=== PATIENT | male | born 1960 | race Caucasian/White ===

== ENCOUNTER → 2022-11-02 11:03 | Outpatient (BNVA) | payer OTHER, SELFPAY | PROVIDERS: Visit Provider Neurological Surgery | DX: M51.06 Intervertebral disc disorders with myelopathy, lumbar region (principal) | CPT/HCPCS: 99202 ==

== ENCOUNTER 2022-11-04 05:57 | Day surgery (SDC) | payer OTHER, SELFPAY ==
[2022-11-02 10:07] VITALS: BMI 26.8
--- NOTE | 2022-11-03 10:12 | P.CONAN_ITS ---
Documented by User: Cassie Escoto NP 11/03/22 10:15 HPI - Anesthesia Eval Consult details Narrative: 62yo M for L4-5 Micro Lumbar discectomy Morphine daily Patient unable to come for PAT d/t severe pain. PMFSH Active Problems Active Problems: All Active Problems (Updated 11/02/22 @ 12:30 by Najma Redd, MELE) Lumbar disc herniation with myelopathy (Acute ~10/27/22) Past Medical History Medical History (Updated 11/02/22 @ 12:30 by Najma Redd RN) Back pain Basal cell carcinoma of skin Elevated cholesterol Incomplete right bundle branch block (RBBB) Osteoarthritis Surgical History Surgical History (Updated 11/02/22 @ 10:03 by Najma Redd RN) H/O colonoscopy History of back surgery History of back surgery Hx of knee surgery Social History Social History Are you a primary clinical manager home care to a significant other at home: No Do you presently have visiting nurse or other home services: No Patient Tobacco Use Status: Never used Tobacco Use of substances other than those prescribed or required for medical reasons: No Have you been hit, kicked, punched, or otherwise hurt by someone within the past year? If so, by whom?: No Are you DNR?: No Advance Directives Information Provided: Yes (as above noted-will bring copy DOS) Advance Directives on File: No Recently lost weight without trying: No Eating poorly because of decreased appetite: No Nutrition Risks: No Nutritional Risk Poor oral hygiene: No Meds Allergies Allergy/AdvReac Type Severity Reaction Status Date / Time No Known Allergies Allergy Verified 11/02/22 10:03 Active Medications: Current Medications Gabapentin (Gabapentin 300 Mg Capsule) 300 mg PO PREOP ONE Stop: 11/04/22 10:01 Cefazolin Sodium/Dextrose (Ancef) 2 gm in 50 mls @ 100 mls/hr IV PREOP ONE Stop: 11/04/22 10:29 Acetaminophen (Ofirmev) 1,000 mg in 100 mls @ 400 mls/hr IV PREOP ONE Stop: 11/04/22 10:14 Methocarbamol (Methocarbamol 750 Mg Tablet) 750 mg PO PREOP ONE Stop: 11/04/22 10:01 Home Medications Medication Instructions Recorded Confirmed Last Taken Type aspirin 81 mg tablet,delayed 81 mg PO DAILY 11/02/22 11/02/22 11/03/22 History release atorvastatin 40 mg tablet 20 mg PO QPM 11/02/22 11/02/22 11/03/22 History cyclobenzaprine 10 mg tablet 10 mg PO TID 11/02/22 11/02/22 11/03/22 History ibuprofen 600 mg tablet 600 mg PO TID 11/02/22 11/02/22 11/03/22 History methylprednisolone 11/02/22 11/02/22 11/03/22 History morphine 15 mg immediate release 15 mg PO TID 11/02/22 11/02/22 11/03/22 History tablet multivitamin 1 tab PO DAILY 11/02/22 11/02/22 11/03/22 History Exam Exam Date and Time: November 03, 2022 1012 Height,Weight and Vital Signs: Height 5 ft 11.5 in Weight 88.451 kg Assessment and Plan Assessment Anesthesia Assessment: Chart Reviewed Documented by User: Perez Haddad MD 11/04/22 07:07 [facility] Past Medical History Medical History (Updated 11/02/22 @ 12:30 by Najma Redd RN) Back pain Basal cell carcinoma of skin Elevated cholesterol Incomplete right bundle branch block (RBBB) Osteoarthritis Family History Family history of problems with anesthesia: No Surgical History Surgical History (Updated 11/02/22 @ 10:03 by Najma Redd RN) H/O colonoscopy History of back surgery History of back surgery Hx of knee surgery History of Problems with Anesthesia: No Social History Social History Are you a primary clinical manager home care to a significant other at home: No Do you presently have visiting nurse or other home services: No Patient Tobacco Use Status: Never used Tobacco Use of substances other than those prescribed or required for medical reasons: No Have you been hit, kicked, punched, or otherwise hurt by someone within the past year? If so, by whom?: No Are you DNR?: No Advance Directives Information Provided: Yes (as above noted-will bring copy DOS) Advance Directives on File: No Recently lost weight without trying: No Eating poorly because of decreased appetite: No Nutrition Risks: No Nutritional Risk Poor oral hygiene: No Meds Allergies Allergy/AdvReac Type Severity Reaction Status Date / Time No Known Allergies Allergy Verified 11/02/22 10:03 Home Medications Medication Instructions Recorded Confirmed Last Taken Type aspirin 81 mg tablet,delayed 81 mg PO DAILY 11/02/22 11/02/22 11/03/22 History release atorvastatin 40 mg tablet 20 mg PO QPM 11/02/22 11/02/22 11/03/22 History cyclobenzaprine 10 mg tablet 10 mg PO TID 11/02/22 11/02/22 11/03/22 History ibuprofen 600 mg tablet 600 mg PO TID 11/02/22 11/02/22 11/03/22 History methylprednisolone 11/02/22 11/02/22 11/03/22 History morphine 15 mg immediate release 15 mg PO TID 11/02/22 11/02/22 11/03/22 History tablet multivitamin 1 tab PO DAILY 11/02/22 11/02/22 11/03/22 History Exam Airway Mallampati Class: III TM Dist: <=3cm Neck ROM: Limited Heart: rrr Lungs: cta Assessment and Plan Assessment Anesthesia Assessment: Anesthesia Plan Discussed Final Anesthetic Review Family History of Problems with Anesthesia: No History of Problems with Anesthesia: No NPO: Yes ASA Class: III Final Preanesthetic Review: No Changes in Pt Med Stat, Meds/Allgs Chart Reviewed, Consent Obtained/Reviewed and Anes Risks/Benef Reviewed Patient Risk: Intermediate Procedure Risk: Intermediate Anesthetic Plan Anesthetic Plan: GA Disposition: Standard PACU
[2022-11-04] VITALS (10 sets, daily range): BP systolic 116–134; BP diastolic 53–78; PULSE 61–85; RESP 16–20; TEMP 35.7–37; O2SAT 96–99; BMI 26.8
--- NOTE | 2022-11-04 | ECG_ITS ---
Test Reason : RBBB PREOP Blood Pressure : / mmHG Vent. Rate : 057 BPM Atrial Rate : 057 BPM P-R Int : 154 ms QRS Dur : 100 ms QT Int : 420 ms P-R-T Axes : 062 024 005 degrees QTc Int : 408 ms Sinus bradycardia Otherwise normal ECG No previous ECGs available Referred By: Cassie Escoto Electronically Signed By:Shahbaz Dawn
--- NOTE | ~2022-11-04 | FL_ITS ---
EXAMINATION: XR FLUOROSCOPY WITH IMAGES CLINICAL INFORMATION: Surgical localization. COMPARISON: None available. TECHNIQUE: Fluoroscopy Supervised By: Dr. Arash Parada. Fluoroscopy Time: Under 10 seconds. Cumulative Dose: 1.91 mGy. DAP: 0.357 Gycm2. Images: 1. FL/FL guidance in OR FINDINGS/IMPRESSION: There is a clamp overlying the posterior elements lower lumbar spine at L4-L5.
[2022-11-04] MEDS: Gabapentin 300 MG CAPSULE PO (06:15)
[2022-11-04] MEDS: methocarbamoL 750 MG TABLET PO (06:15)
[2022-11-04] MEDS: Lactated Ringers 1,000 ML 100 ML IVCONT (06:36)
[2022-11-04 06:56] LABS: Hematocrit 42.8 % (42.0-52.0); Hemoglobin 14.6 g/dl (14.0-18.0); Mean Corpuscular HGB Conc 34.1 g/dl (31.0-36.0); Mean Corpuscular Hemoglobin 31.8 pg (27.0-33.0); Mean Corpuscular Volume 93.2 fL (80.0-98.0); Mean Platelet Volume 10.6 fL (9.4-12.4); Platelet Count 264 X10*3/uL (160-400); Red Blood Count 4.59 X10*6/uL (4.60-5.80); Red Cell Distribution Width 12.2 % (11.0-16.0); White Blood Count 12.8 X10*3/uL (4.8-10.8)
[2022-11-04 07:17] LABS: Anion Gap 10 (12-20); Blood Urea Nitrogen 21 mg/dL (9-16); Calcium 9.6 mg/dL (8.4-10.2); Carbon Dioxide 28 mmol/L (22-29); Chloride 107 mmol/L (96-108); Estimated Glomerular Filt Rate > 60; Glucose Fasting 101 mg/dL (60-99); Potassium 4.7 mmol/L (3.3-5.1); Sodium 140 mmol/L (135-145)
--- NOTE | 2022-11-04 09:04 | P.OP_ITS ---
Operative Note Operative Note Date of Service: 11/04/22 Narrative: Preoperative diagnosis: Right lumbar radiculopathy due to disc herniation Postoperative diagnosis: Same Procedure: Right L4-5 lumbar microdiskectomy with microscope Surgeon: Arash Parada MD, PhD Public Relations Studies Director: Sanjay West PA-c This is a 62-year-old male that developed an acute lumbar radiculopathy with numbness and weakness of his right leg. An MRI shows a right L4-5lumbar disc herniation. The patient was offered a lumbar microdiskectomy to decompress the nerve root. The procedure complications were explained. The patient was consented. The patient was brought to the operating room and endotracheally intubated. The patient was turned in a prone position on the Adrian frame. Prepping and draping was done followed by time-out. A mid lumbar incision was made followed by release of the paravertebral muscles on the right side to expose the L4-5 interspace. An intraoperative x-rays obtained to confirm the correct level. The microscope was brought in. A right L5 laminotomy was done fo llowed by opening of the flavum ligament. The L5 nerve root was identified and retracted medially to expose the L4-5 disc space. I could palpate a disc herniation medial from the L5 nerve root, which I coronary removed with a pituitary. A defect was seen in the disc space and with a straight pituitary residual fragments were removed from the disc space. This resulted in an excellent decompression of the L5 nerve root. Hemostasis was done. The microscope was removed. Marcaine was injected intramuscularly.The incision was closed in two layers. Steri-Strips used to approximate seizure. An op-site were taken there was used to cover the incision. All sponge and needle counts were correct. Patient was extubated and transported in stable condition to recovery room. this procedure was done with the aid of a physician curriculum assistant principal who performed the initial exposure until the microscope was brought in and performed the closure of the incision. Anesthesia: General Blood loss: 10 mL Complications: None Specimen: None Disposition: Discharge
--- NOTE | 2022-11-04 09:04 | PM.DS ---
DS: Providers Provider Date of Service: 11/04/22 Date of discharge: 11/04/22 Primary care physician: Unknown Physician DS: Diagnosis Discharge Diagnosis (1) Lumbar disc herniation with myelopathy: Status: Acute DS: Summary Time Spent with Patient Time attestation: Total time managing care of this patient today ____ minutes. Discharge coordination time: Less than 30 minutes Quality: Safe Use of Opioids Does Pt have an Active Cancer Diagnosis on the Problem List?: No Quality: Stroke Does the patient have a stroke diagnosis?: No Physical Exam Vital Signs: Vital Signs: Last Vital Signs Temp 96.3 F L 11/04/22 06:01 Pulse 61 11/04/22 06:01 Resp 20 11/04/22 06:01 BP 134/77 11/04/22 06:01 Pulse Ox 98 11/04/22 06:01 O2 Del Method Room Air 11/04/22 06:01 BMI result Body Mass Index 26.8 DS: Data Data Completed and Pending Labs on day of discharge: Laboratory Results - last 24 hr 11/04/22 11/04/22 06:47 06:47 WBC 12.8 H RBC 4.59 L Hgb 14.6 Hct 42.8 MCV 93.2 MCH 31.8 MCHC 34.1 RDW 12.2 Plt Count 264 MPV 10.6 Absolute Nucleated RBC 0.000 Nucleated RBC % (auto) 0.0 Sodium 140 Potassium 4.7 Chloride 107 Carbon Dioxide 28 Anion Gap 10 L BUN 21 H Creatinine 0.83 Estim Creat Clear Calc 97.0 Estimated GFR > 60 Fasting Glucose 101 H Calcium 9.6 Discharge Plan Discharge Patient Disposition: Home, Self-Care Referrals: Physician,Unknown J [Primary Care Provider] - 1 Week Discharge Medications: New oxycodone 5 mg tablet 5 mg PO Q4H PRN (Reason: pain) Qty: 30 0RF Rx Instructions: Partial Fill upon patient request. Continued cyclobenzaprine 10 mg Tablet 10 mg PO TID ibuprofen 600 mg Tablet 600 mg PO TID morphine 15 mg Tablet 15 mg PO TID methylprednisolone multivitamin Tablet 1 tab PO DAILY atorvastatin 40 mg tablet 20 mg PO QPM aspirin 81 mg Tablet,Delayed Release (Dr/Ec) 81 mg PO DAILY Discharge Orders: Discharge Order (Routine); Ordered 11/04/22 Ordered By: Sanjay West Diet: Advance to usual diet Activity on Discharge: As tolerated Activity Restrictions/Additional Instructions: After your spinal surgery we ask you to observe the following restrictions/guidelines: Activity: It is normal to feel some discomfort as you increase your activity, but that will improve with time. We ask you avoid heavy lifting or acitivities that cause pain. As a general rule, 8lbs is a safe limit for lifting right after surgery. Walk as much as you feel comfortable but not to exhaustion. You will feel extra tired the first few days after surgery. Stay well hydrated. It is OK to walk up and down stairs You may return to driving when you are off narcotics (such as vicodin, oxycodone, dilaudid, etc), and you are back to normal functional capacity. If you have any concerns please check with office before driving. Return to work is specific to each patient and each surgery, so please speak with your doctor/PA at first follow up. Please bring paperwork such as FMLA at that time if you need it filled out. Medications: We will give you a short supply of narcotics after surgery (usually one weeks worth). If you need more please call the office but do not use more than prescribed. You will need to give our office 48 hours notice if you need narcotics refilled and we do not fill narcotics on weekends or evenings. If you are on a narcotic, it is a good idea to take a stool softener such as colace or senna to avoid constipation If you take blood thinner such as aspirin, Plavix, Coumadin, Effient, Eliquis etc for conditions such as Afib, DVT, Pulmonary embolus, coronary disease, stents etc please speak with your surgeon about specific details as to when you can resume these medications. You can resume NSAIDs on post op day 1 (eg: Motrin, Naproxen, etc). Follow up: Please call the office, , after surgery to arrange a 3 week follow up for wound check. Wound Care: You may remove your dressing on the first day after surgery. You may leave open to air. Please do not remove the steri strips underneath. they will fall off on their own in one week. IT IS NORMAL FOR THE WOUND TO OOZE OR BE BLOODY FOR A FEW DAYS AFTER SURGERY. IF THIS HAPPENS JUST PLACE NEW DRESSING OVER IT TO AVOID STAINING CLOTHES. You may shower on post op day # 1 We ask that you do not let the water soak the wound. If it does get wet, just towel dry lightly. Please do not scrub your incision or place any type of chemical/ointment on the wound. No tub baths, pools or jacuzzis for one month. If you have any leaking or redness from your wound, or fevers, please call office
== END 2022-11-04 11:18 | disposition home or self-care (01) ==
PROVIDERS: Nurse Practitioner; Visit Provider Neurological Surgery
PROC: (CPT 63030; principal; 2022-11-04 07:30)
DX: M48.062 Spinal stenosis, lumbar region with neurogenic claudication (principal); M51.06 Intervertebral disc disorders with myelopathy, lumbar region; M54.50 Low back pain, unspecified; M79.604 Pain in right leg; R20.0 Anesthesia of skin; I45.10 Unspecified right bundle-branch block; E78.00 Pure hypercholesterolemia, unspecified; Z79.1 Long term (current) use of non-steroidal anti-inflammatories (NSAID); Z79.899 Other long term (current) drug therapy
CPT/HCPCS: 63030; 36415; 80048; 85027; 93005; J0131; J0690; J1100; J1885; J2405

== ENCOUNTER 2022-11-15 11:56 | Outpatient (REF) | payer OTHER, SELFPAY ==
--- NOTE | ~2022-11-15 | MR_ITS ---
EXAMINATION: MR LUMBAR SPINE WITHOUT AND WITH CONTRAST CLINICAL INFORMATION: Status post L4-L5 discectomy. Residual right leg pain. COMPARISON: Lumbar spine MRI 11/01/2022. TECHNIQUE: MRI of the lumbar spine was obtained using routine sequences without and with intravenous contrast. A total of 9 mL Gadavist was intravenously administered. FINDINGS: The lumbar vertebral bodies maintain normal heights and alignment. There is multilevel intervertebral disc height loss. No endplate edema is seen. There is a hemangioma in the T12 vertebral body. The distal spinal cord appears normal. The conus medullaris terminates normally at the T12-L1 level. There is enhancement about the right-sided L5 nerve roots, likely representing sequela of chronic compression. The extraspinal soft tissues are unremarkable allowing for the operative changes. SPINAL LEVELS: L1-L2: Disc bulging. No spinal canal or neural foraminal stenosis. Mild narrowing of the left subarticular zone. L2-L3: Mild disc bulging. No spinal canal or neural foraminal stenosis. L3-L4: Disc bulging asymmetric to the left resulting in abutment of the traversing left L4 nerve root. Mild left neural foraminal stenosis. No interval change. L4-L5: Right hemilaminectomy changes. Enhancement with heterogeneous signal within the right subarticular zone in the setting of recent discectomy. Disc bulging with apparent right subarticular protrusion and small extrusion fragment with compression of the traversing right L5 nerve root. Mild flattening the right ventral thecal sac. Mild right neural foraminal stenosis but no foraminal nerve root compression. L5-S1: Disc bulging asymmetric to the right with narrowing of the right subarticular zone. Mild facet arthropathy. No spinal canal stenosis. Mild right neural foraminal stenosis. MR/MR lumbar spine wo/w con IMPRESSION: 1. At L4-L5 there is apparent right subarticular protrusion with small extrusion fragment causing compression of the traversing right L5 nerve root however this is nonspecific in the immediately postoperative phase and could reflect changes of recent discectomy versus recurrent herniation. Enhancement about the right-sided L5 nerve root likely represents sequela of chronic compression. 2. Additional milder spondylotic changes are noted without significant progression compared with 11/01/2022.
== END 2022-11-15 11:57 | disposition home or self-care (01) ==
LOC: HO.MRI 11:56
PROVIDERS: Visit Provider Neurological Surgery
DX: Z98.890 Other specified postprocedural states (principal); M79.604 Pain in right leg
CPT/HCPCS: 72158; A9585